=== PATIENT | male | born 1995 | race Caucasian/White ===

== ENCOUNTER 2017-05-22 20:23 | Emergency (ER) | payer OTHER ==
[~2017-05-22] VITALS: Ht 172.7 cm; Wt 58.5 kg
[2017-05-22 20:41] VITALS: TEMP 37.5; Ht 172.7 cm; Wt 58.5 kg
[2017-05-22] MEDS ORDERED: ONDANSETRON 4MG OD TAB PO STA (21:10)
[2017-05-22] MEDS ORDERED: ONDANSETRON HOME PACK 4MG OD TAB PO ONE (21:15)
--- NOTE | 2017-05-22 21:16 | EMERGENCY ROOM VISIT NOTE ---
History Report prepared by Scribe: Kim Pelletier Under the Supervision of: Dr. David Easley M.D. First contact with patient: 21:02 Chief Complaint: ILLNESS Stated Complaint: VOMITING,CHEST PAINS,FEVER History of Present Illness The patient is a 21 year old male who presents to the Emergency Room with complaints of persistent vomiting for the past 2 hours. He believes he vomited approximately 15 times. He had diarrhea this morning, but states it has resolved. He has also experienced abdominal pain, lightheadedness, bilateral leg cramps and general fatigue. He denies any alcohol or illegal drug use over the weekend. He did eat in the dorms this past weekend. He still has his appendix and gallbladder. He has no chronic medical problems. 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 A total of 10 systems reviewed and were otherwise negative. Past Medical & Surgical Medical Problems: (1) No significant past medical history Social History Smoking Status: Never Smoker Alcohol Use: occasionally Drug Use: none Marital Status: in relationship Housing Status: lives with roommate Occupation Status: [employer] Current/Historical Medications Scheduled Ondasetron Odt (Zofran Odt), 4 MG SL Q6H Allergies Coded Allergies: No Known Allergies (Unverified , 05/22/17) Physical Exam Vital Signs Date Time Temp Pulse Resp B/P (MAP) Pulse Ox O2 Delivery O2 Flow Rate FiO2 05/22/17 22:41 99 18 108/69 98 05/22/17 20:41 37.5 122 20 129/77 97 Room Air Physical Exam GENERAL: Patient is a healthy-appearing well-nourished 21 year old male HEAD: Normocephalic atraumatic EYES: Ocular movements intact pupils equal and react to light OROPHARYNX mucous membranes are moist no exudates present no erythema or edema present NECK: Supple no nuchal rigidity CHEST: Good equal expansion LUNGS: Clear and equal to auscultation CARDIAC: Normal S1 and S2 ABDOMEN: Soft nontender no guarding BACK: No CVA tenderness EXTREMITIES: No pain upon palpation normal muscle strength in all groups no clubbing cyanosis or edema NEURO: Patient is following commands is answering questions appropriately. Alert and oriented x3 Cranial Nerves 2-12 grossly intact Medical Decision & Procedures Medications Administered Medications (Trade) Dose Ordered Sig/Bubba Route Start Time Stop Time Status Last Admin Dose Admin Ondansetron HCl (Zofran Odt) 4 mg ONE STAT PO 05/22/17 21:10 05/22/17 21:11 DC 05/22/17 21:30 4 MG Ondansetron HCl (ZOFRAN ODT 4MG Home Pack) 1 [facility] UD ONCE PO 05/22/17 21:15 05/22/17 21:16 DC 05/22/17 22:38 1 [facility] ED Course 2105: Past medical records reviewed. The patient was evaluated in room C10. A complete history and physical examination was performed. 2109: Zofran 4 mg PO. 2114: Zofran 4 mg 1 homepack PO. 2129: I reevaluated the patient. He is feeling well and resting comfortably. I discussed his results and discharge instructions and he verbalized complete understanding and agreement. Medical Decision Prior records/ancillary studies reviewed. Triage Nursing notes reviewed. The patient's history was concerning for nausea, vomiting, diarrhea, and abdominal pain. Differential diagnosis: Etiologies such as gastroenteritis, food borne illness, infections, appendicitis , diverticulitis, inflammatory bowel disease, obstruction, GI bleed, biliary pathology, as well as others were entertained. This is a 21-year-old male who presents emergency department complaining of gastroenteritis. The patient is adamantly refusing an IV he is requesting by mouth medication. I believe that this is reasonable. Patient was given 4 mg of Zofran. Serial abdominal examinations were performed on the patient in the emergency department and at no time did the patient exhibited a surgical abdomen. Based on these findings I feel that the patient as well as to be discharged home. Patient was in agreement with the treatment plan. Medication Reconcilliation Current Medication List: was personally reviewed by me Blood Pressure Screening Patient's blood pressure: Normal blood pressure Blood pressure disposition: Did not require urgent referral Impression Primary Impression: Vomiting Scribe Attestation The scribe's documentation has been prepared under my direction and personally reviewed by me in its entirety. I confirm that the note above accurately reflects all work, treatment, procedures, and medical decision making performed by me. Departure Information Dispostion Home / Self-Care Prescriptions Ondasetron Odt (ZOFRAN ODT) 4 Mg Tab 4 MG SL Q6H for Nausea, #6 TAB Prov: David Easley MD 05/22/17 Referrals No Doctor, Assigned (PCP) Patient Instructions ED Diet Vomiting Diarrhea, ED Nausea Vomiting, [facility], Nausea Vomit Control Additional Instructions You have been examined and treated today on an emergency basis only. This is not a substitute for, or an effort to provide, complete comprehensive medical care. It is impossible to recognize and treat all injuries or illnesses in a single emergency department visit. It is therefore important that you follow up closely with [facility]. Call as soon as possible for an appointment. Thank you for your time and consideration. I look forward to speaking with you again soon. Please don't hesitate to call us if you have any questions.
[2017-05-22] MEDS ORDERED: ONDA4TAB10 SL (22:23)
[2017-05-22 22:41] VITALS: BP 108/69; PULSE 99; O2SAT 98
== END 2017-05-22 22:41 | disposition home or self-care (01) ==
LOC: C.EDB 20:26 → C.EDC 22:41
DX: R11.10 Vomiting, unspecified (principal)